=== PATIENT | male | born 1995 | race Caucasian/White ===

== ENCOUNTER 2017-04-21 05:23 | Emergency (ER) | payer OTHER ==
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
[2017-04-21 05:44] VITALS: PULSE 93; TEMP 97.5; O2SAT 97
[2017-04-21 05:49] VITALS: BP 144/96; RESP 16
== END 2017-04-21 05:49 | disposition home or self-care (01) ==
DX: S29.012A Strain of muscle and tendon of back wall of thorax, initial encounter (principal); V48.5XXA Car driver injured in noncollision transport accident in traffic accident, initial encounter; Y92.410 Unspecified street and highway as the place of occurrence of the external cause